=== PATIENT | male | born 1990 | race Caucasian/White ===

== ENCOUNTER 2018-01-31 13:22 | Emergency (ER) | payer OTHER ==
--- NOTE | 2018-01-31 14:36 | C.PDOC ---
History Of Present Illness 27yo male, otherwise well, comes to ER reporting his "fingers are not acting properly" on his right hand. Patient is left hand dominant. He states since yesterday morning, he has been unable to move his fingers completely; he denies any trauma or injury to his right hand. He states he is unsure if he slept in a different position. He denies any headache, neck pain, fever, chills, arm weakness. Patient states his sister is a physician and she advised him to keep his arm straight and prescribed steroids 40mg. He reports tingling sensations if he keeps his arm straight for long periods of time. He has been taking steroids with no relief of symptoms. Time Seen by Provider: 01/31/18 13:37 Chief Complaint (Nursing): Upper Extremity Problem/Injury History Per: Patient History/Exam Limitations: no limitations Onset/Duration Of Symptoms: Days (1) Current Symptoms Are (Timing): Still Present Additional History Per: Patient Past Medical History Reviewed: Historical Data, Nursing Documentation, Vital Signs Vital Signs: Last Vital Signs Temp 97.7 F 01/31/18 13:28 Pulse 87 01/31/18 13:28 Resp 16 01/31/18 13:28 BP 128/75 01/31/18 13:28 Pulse Ox 100 01/31/18 13:28 - Medical History PMH: No Chronic Diseases Surgical History: No Surg Hx Family History: States: No Known Family Hx - Social History Hx Alcohol Use: Yes Hx Substance Use: No - Immunization History Hx Tetanus Toxoid Vaccination: No Hx Influenza Vaccination: No Hx Pneumococcal Vaccination: No Review Of Systems Constitutional: Negative for: Fever, Chills Eyes: Negative for: Vision Change Musculoskeletal: Positive for: Other (unable to flex fingers on right hand). Negative for: Neck Pain, Arm Pain Neurological: Negative for: Weakness, Numbness, Headache Physical Exam - Physical Exam Appears: Non-toxic, No Acute Distress Skin: Normal Color, Warm, Dry Head: Atraumatic, Normacephalic, No Tenderness Eye(s): bilateral: Normal Inspection, PERRL, EOMI Neck: Normal ROM, No Midline Cervical Tenderness, No Paracervical Tenderness, Supple Chest: Symmetrical Cardiovascular: Rhythm Regular Respiratory: Normal Breath Sounds Extremity: Normal ROM (normal ROM right shoulder, elbow.), No Tenderness, Capillary Refill (< 2 seconds), No Deformity, No Swelling, Other (unable to fully extend digits of right hand. normal flexion. 5/5 production recorder strength bilaterally. normal sensation.) Pulses: Right Radial: Normal Neurological/Psych: Oriented x3, Normal Speech, Normal Sensation ED Course And Treatment O2 Sat by Pulse Oximetry: 100 (RA) Pulse Ox Interpretation: Normal Medical Decision Making Medical Decision Making: Impression: 27yo male with difficulty in extension of digits on his right hand. Case discussed with ER attending Dr. Hancock who also examined patient; he is agreeable with plan for MRI Plan: * MRI Brain w/o contrast * MRI Cervical spinal canal w/o contrast 1621 MRI C-spine canal IMPRESSION: No acute fracture or spondylolisthesis. Mild degenerative disc disease at C4-5 and C5-6 with mild right neural foraminal narrowing at C4-5 and mild left neural foraminal narrowing at C5-6, no central spinal canal stenosis. Straightening of the cervical spine may be positional or related to muscle spasm. MRI Brain IMPRESSION: No acute intracranial abnormality. Patient remained well and in no distress. Plan is to discharge patient and have him follow up with neurology and continue steroids. Disposition Counseled Patient/Family Regarding: Diagnosis, Need For Followup - Disposition Referrals: Giorgi Loyola MD [Staff Provider] - Joel Torres MD [Medical Doctor] - Disposition: HOME/ ROUTINE Disposition Time: 17:03 Condition: STABLE Additional Instructions: Please follow up with neurologist for further evaluation. Continue taking steroids Instructions: Hand Pain (DC) Forms: [facility] (Hungarian) - POA Present On Arrival: None - Clinical Impression Clinical Impression: Nerve disorder - PA / DATA WAREHOUSING SPECIALIST / Resident Statement MD/ has reviewed & agrees with the documentation as recorded. - Scribe Statement The provider has reviewed the documentation as recorded by the Shala Cross Provider Attestation: All medical record entries made by the Shala were at my direction and personally dictated by me. I have reviewed the chart and agree that the record accurately reflects my personal performance of the history, physical exam, medical decision making, and the department course for this patient. I have also personally directed, reviewed, and agree with the discharge instructions and disposition.
--- NOTE | 2018-01-31 16:25 | MRI ---
Date of service: 01/31/2018 PROCEDURE: MR CERVICAL SPINE WITHOUT CONTRAST HISTORY: unable to extend digits right hand COMPARISON: None available. TECHNIQUE: Multiecho multiplanar sequences were performed through the cervical spine without the use of intravenous contrast. FINDINGS: There straightening of the cervical spine with loss of normal cervical lordosis. Vertebral alignment is normal. Vertebral height is maintained. Bone marrow signal is within normal limits. There is no acute fracture or spondylolisthesis. The craniocervical junction is normal. The atlantoaxial joint is normal. The cervical cord is normal in contour, caliber and has normal intrinsic signal. C2-C3: No disc herniation, spinal canal stenosis or neural foraminal narrowing. C3-C4: No disc herniation, spinal canal stenosis or neural foraminal narrowing. C4-C5: Broad-based disc osteophyte complex with asymmetric mild right uncovertebral hypertrophy in conjunction with mild facet arthropathy result in mild right neural foraminal narrowing. No spinal canal stenosis. C5-C6: Broad-based disc osteophyte complex with asymmetric left uncovertebral joint hypertrophy in conjunction with mild facet arthropathy result in mild left neural foraminal narrowing. No central spinal canal stenosis. C6-C7: No disc herniation, spinal canal stenosis or neural foraminal narrowing. C7-T1: No disc herniation, spinal canal stenosis or neural foraminal narrowing. OTHER FINDINGS: None. IMPRESSION: No acute fracture or spondylolisthesis. Mild degenerative disc disease at C4-5 and C5-6 with mild right neural foraminal narrowing at C4-5 and mild left neural foraminal narrowing at C5-6, no central spinal canal stenosis. Straightening of the cervical spine may be positional or related to muscle spasm.
[2018-01-31 16:43] VITALS: BP 127/73; PULSE 72; RESP 18; TEMP 98
--- NOTE | 2018-01-31 16:52 | MRI ---
Date of service: 01/31/2018 PROCEDURE: MRI BRAIN WITHOUT CONTRAST HISTORY: unable to extend digits right hand COMPARISON: None available. TECHNIQUE: Multiplanar, multisequence MR images of the brain were obtained without intravenous contrast enhancement. FINDINGS: HEMORRHAGE: None DWI: No evidence of an acute or early subacute infarction. BRAIN PARENCHYMA: Deng-white matter differentiation is preserved. There is no mass, mass effect or abnormal extra-axial fluid collection. There is no territorial infarction. The midline sagittal structures are normal. VENTRICLES: There is mild age advanced global parenchymal volume loss and proportionate enlargement of the ventricles and cortical sulci. CRANIUM: There is normal bone marrow signal pattern. ORBITS: Grossly unremarkable. PARANASAL SINUSES/MASTOIDS: Predominantly clear. VASCULAR SYSTEM: There are normal signal voids in the larger intracranial arteries. OTHER FINDINGS: None. IMPRESSION: No acute intracranial abnormality.
[2018-01-31 17:06] VITALS: O2SAT 100
== END 2018-01-31 17:15 | disposition home or self-care (01) ==
LOC: C.ER 13:22
DX: G58.9 Mononeuropathy, unspecified (principal)